=== PATIENT | female | born 1980 | race Caucasian/White ===

== ENCOUNTER 2020-05-18 00:06 | Inpatient (IN) ==
[2020-05-18] MEDS ORDERED: OXYTOCIN 30 UNITS/500 ML BAG IV PRN ×2 (01:17→12:29)
--- NOTE | 2020-05-18 01:27 | Obstetrical Progress Note ---
Date of Service May 18, 2020 Assessment & Plan Admission and Anticipated Discharge Date Admission Date: May 18, 2020 Physical Exam Physical Exam: Admit Note 39 F P0000 at 40 weeks admitted in early labor. GBS is negative. FHT Cat 1. Cervix 2-3/70/-2/vertex/intact. Will admit in labor. Results & Data ([facility]) Vital Signs (Past 12 Hours) Vital Signs Temp Pulse Resp BP 05/18/20 00:32 36.8 C 68 18 121/77 05/18/20 00:27 68 121/77 05/18/20 00:21 69 119/59 L
[2020-05-18 01:37] LABS: Hematocrit (blood only) 34.3 % (37-47); Mean Corpuscular Hemoglobin 26.1 pg (25-34); Mean Corpuscular Volume 81.3 fL (80-100); Mean Platelet Volume 11.4 fL (7.4-10.4); Platelet Count 235 K/uL (130-400); RDW Coefficient of Variation 15.3 % (11.5-14.5); RDW Standard Deviation 44.5 fL (36.4-46.3); Red Blood Count 4.22 M/uL (4.2-5.4); White Blood Count 15.45 K/uL (4.8-10.8)
[2020-05-18 01:44] LABS: Mean Corpuscular Hgb Conc 32.1 g/dL (32-36)
[2020-05-18] MEDS: LACTATED RINGER'S 1,000 ML IV PRN ×4 (04:35→23:14)
[2020-05-18] MEDS ORDERED: ePHEDrine sulfate 50 MG/ML AMP ONE (04:35)
[2020-05-18] MEDS ORDERED: BUPIVACAINE 0.25% 30 ML VIAL ONE ×2 (04:35→23:47)
[2020-05-18] MEDS ORDERED: fentaNYL citrate 100 MCG/2 ML VIAL ONE ×2 (04:35→23:47)
[2020-05-18] MEDS ORDERED: fentaNYL 2MCG/ML ROPIV 1.25MG/ML 100 ML BAG EPI ONE (04:36)
[2020-05-18] MEDS ORDERED: NALBUPHINE HCL INJ 10 MG/ML AMP IV PRN (04:39)
[2020-05-18] MEDS ORDERED: DiphenhydrAMINE HCL 50 MG/ML VIAL IV PRN (04:39)
[2020-05-18] MEDS ORDERED: ePHEDrine sulfate 50 MG/ML AMP IV PRN (04:39)
[2020-05-18] MEDS ORDERED: NALOXONE HCL 1 MG in SODIUM CHLORIDE 0.9% 1000ML 1,000 ML IV PRN (04:39)
[2020-05-18] MEDS ORDERED: NALOXONE HCL 0.4 MG/1 ML VIAL/CARP IV PRN (04:39)
--- NOTE | 2020-05-18 04:40 | Anesthesiology Consultation ---
Date of Service May 18, 2020 Assessment & Plan (1) Encounter for pre-operative examination: Chart Review Chart Review: Patient NOT seen in Pre Admission Testing and Acceptable Risk for Labor Epidural Consults Requested none History Height/Weight Height: 5 ft 4 in Weight: 66.224 kg Allergies Allergy/AdvReac Type Severity Reaction Status Date / Time lactose AdvReac Diarrhea Verified 05/18/20 01:31 Medications Home Medications Medication Instructions Recorded Confirmed Last Taken PNV cmb#95-ferrous fumarate-FA 1 tab PO DAILY 05/18/20 05/18/20 05/17/20 [] sertraline 25 mg PO DAILY 05/18/20 05/18/20 05/17/20 Past Medical History Medical History Depression LGSIL on Pap smear of cervix Exercise / Class Metabolic Activity II 4-5 Yardwork/Stairs/Walk up hill Past Surgical History Surgical History H/O LEEP [place] teeth extracted Past Anesthesia History No Hx of Anesthesia Complications and No Family Hx of Anesthesia Complications History of PONV No Hx of PONV and No Hx of Motion Sickness Social History Smoking Status: Never smoker Do You Dip or Chew Tobacco: No Hx Alcohol Use: No Hx Substance Use: No Physical Exam Vital Signs Last Vital Signs Temp 36.6 C 05/18/20 04:07 Pulse 66 05/18/20 04:07 Resp 18 05/18/20 04:07 BP 110/54 L 05/18/20 04:07 Testing Laboratory Results 05/18/20 01:30
--- NOTE | 2020-05-18 08:03 | Obstetrical Progress Note ---
Date of Service May 18, 2020 Assessment & Plan Admission and Anticipated Discharge Date Admission Date: May 18, 2020 Subjective Met pt and Spouse Epidural analgesia FHR; CAT1 Ctx; 2-4mins VE; 3-4/90/-1 AROM- mild meconium will augment labor with Pitocin pt agrees to piton augmentation Results & Data ([facility]) Vital Signs (Past 12 Hours) Vital Signs Temp Pulse Resp BP Pulse Ox 05/18/20 07:59 72 98 05/18/20 07:54 82 98 05/18/20 07:49 68 98 05/18/20 07:46 65 106/60 05/18/20 07:44 70 100 05/18/20 07:39 87 98 05/18/20 07:34 82 97 05/18/20 07:32 75 107/59 L 05/18/20 07:29 75 98 05/18/20 07:24 78 98 05/18/20 07:23 36.8 C 18 05/18/20 07:19 96 H 98 05/18/20 07:17 68 108/59 L 05/18/20 07:14 73 97 05/18/20 07:09 76 98 05/18/20 07:04 70 97 05/18/20 07:02 70 94/55 L 05/18/20 06:59 70 97 05/18/20 06:54 70 97 05/18/20 06:49 64 98 05/18/20 06:47 63 91/52 L 05/18/20 06:44 64 97 05/18/20 06:39 63 97 05/18/20 06:34 67 97 05/18/20 06:29 101 H 98 05/18/20 06:28 76 105/54 L 05/18/20 06:24 107 H 98 05/18/20 06:23 82 110/56 L 05/18/20 06:19 86 97 05/18/20 06:16 80 103/55 L 05/18/20 06:14 90 96 05/18/20 06:11 83 103/56 L 05/18/20 06:09 81 97 05/18/20 06:06 72 107/61 05/18/20 06:04 79 98 05/18/20 06:01 75 106/57 L 05/18/20 05:59 75 99 05/18/20 05:57 74 109/56 L 05/18/20 05:54 87 98 05/18/20 05:51 72 106/60 05/18/20 05:49 72 99 05/18/20 05:47 86 113/67 05/18/20 05:44 79 99 05/18/20 05:42 75 109/61 05/18/20 05:39 87 99 05/18/20 05:36 77 104/59 L 05/18/20 05:34 86 100 05/18/20 05:32 75 111/60 05/18/20 05:29 70 100 05/18/20 05:28 69 112/59 L 05/18/20 05:24 75 100 05/18/20 05:21 77 115/63 05/18/20 05:19 78 100 05/18/20 05:18 77 112/64 05/18/20 05:14 76 99 05/18/20 05:13 75 119/65 05/18/20 05:09 80 99 05/18/20 05:05 86 112/65 05/18/20 05:04 86 99 05/18/20 05:03 79 107/59 L 05/18/20 05:01 81 103/64 05/18/20 05:00 82 113/56 L 05/18/20 04:59 82 98 05/18/20 04:57 89 129/59 L 05/18/20 04:54 72 100 05/18/20 04:53 70 108/66 05/18/20 04:49 77 100 05/18/20 04:44 83 100 05/18/20 04:39 79 100 05/18/20 04:07 36.6 C 66 18 110/54 L 05/18/20 00:32 36.8 C 68 18 121/77 05/18/20 00:27 68 121/77 05/18/20 00:21 69 119/59 L
[2020-05-18] MEDS: ONDANSETRON INJ 2 MG/ML 2 ML VIAL IV PRN ×2 (12:50→20:09)
[2020-05-18] MEDS: fentaNYL 2MCG/ML ROPIV 1.25MG/ML 100 ML BAG EPI PRN ×2 (14:54→22:32)
[2020-05-18] MEDS ORDERED: Nursing to Pharmacy Communication SCH (19:30)
--- NOTE | 2020-05-18 20:05 | Obstetrical Progress Note ---
Date of Service May 18, 2020 Assessment & Plan Admission and Anticipated Discharge Date Admission Date: May 18, 2020 Subjective Pt doing wel FHR; CAT1 Ctx 1-3mins pit; 10Mu VE; 10/100/0 Pt has no urge to push Will start pushing when pt is experiencing vaginal pressure Results & Data ([facility]) Vital Signs (Past 12 Hours) Vital Signs Temp Pulse Resp BP Pulse Ox 05/18/20 19:59 92 H 99 05/18/20 19:54 68 100 05/18/20 19:49 64 100 05/18/20 19:47 67 102/56 L 05/18/20 19:44 64 100 05/18/20 19:39 67 100 05/18/20 19:37 72 118/54 L 05/18/20 19:34 87 99 05/18/20 19:29 64 99 05/18/20 19:24 61 99 05/18/20 19:19 61 100 05/18/20 19:17 61 115/56 L 05/18/20 19:14 65 100 05/18/20 19:09 69 100 05/18/20 19:08 36.8 C 18 05/18/20 19:05 36.8 C 18 05/18/20 19:04 82 100 05/18/20 19:03 60 119/66 05/18/20 19:00 20 05/18/20 18:59 58 L 100 05/18/20 18:54 57 L 100 05/18/20 18:49 57 L 99 05/18/20 18:48 64 112/68 05/18/20 18:44 58 L 99 05/18/20 18:39 60 100 05/18/20 18:34 59 L 100 05/18/20 18:33 55 L 123/66 05/18/20 18:30 20 05/18/20 18:29 55 L 100 05/18/20 18:24 62 100 05/18/20 18:19 62 100 05/18/20 18:17 56 L 113/66 05/18/20 18:14 66 100 05/18/20 18:09 56 L 100 05/18/20 18:04 80 100 05/18/20 18:02 55 L 115/72 05/18/20 18:00 18 05/18/20 17:59 67 100 05/18/20 17:54 61 99 05/18/20 17:49 60 97 05/18/20 17:48 59 L 112/67 05/18/20 17:44 62 98 05/18/20 17:39 61 97 05/18/20 17:34 63 97 05/18/20 17:32 60 111/66 05/18/20 17:30 20 05/18/20 17:29 61 98 05/18/20 17:24 58 L 98 05/18/20 17:19 60 97 05/18/20 17:17 56 L 116/60 05/18/20 17:14 57 L 100 05/18/20 17:09 62 97 05/18/20 17:04 79 99 05/18/20 17:02 61 103/66 05/18/20 17:00 36.8 C 20 05/18/20 16:59 78 98 05/18/20 16:54 73 98 05/18/20 16:49 60 98 05/18/20 16:46 58 L 116/68 05/18/20 16:44 61 97 05/18/20 16:39 67 99 05/18/20 16:34 59 L 97 05/18/20 16:31 63 116/67 05/18/20 16:30 20 05/18/20 16:29 58 L 97 05/18/20 16:24 62 97 05/18/20 16:19 57 L 98 05/18/20 16:17 58 L 114/61 05/18/20 16:14 68 99 05/18/20 16:09 76 98 05/18/20 16:04 67 97 05/18/20 16:02 64 107/55 L 05/18/20 16:00 20 05/18/20 15:59 65 98 05/18/20 15:54 80 98 05/18/20 15:49 66 98 05/18/20 15:46 61 103/59 L 05/18/20 15:44 61 96 05/18/20 15:39 62 96 05/18/20 15:34 60 97 05/18/20 15:31 80 100/58 L 05/18/20 15:30 20 05/18/20 15:29 60 97 05/18/20 15:24 59 L 97 05/18/20 15:19 59 L 97 05/18/20 15:17 55 L 109/58 L 05/18/20 15:14 62 98 05/18/20 15:09 67 98 05/18/20 15:04 57 L 98 05/18/20 15:01 36.9 C 55 L 20 109/62 05/18/20 14:59 58 L 97 05/18/20 14:54 67 98 05/18/20 14:49 57 L 97 05/18/20 14:47 56 L 106/60 05/18/20 14:44 61 98 05/18/20 14:39 56 L 97 05/18/20 14:34 58 L 99 05/18/20 14:32 57 L 106/59 L 05/18/20 14:29 56 L 98 05/18/20 14:24 58 L 98 05/18/20 14:19 56 L 98 05/18/20 14:17 55 L 109/58 L 05/18/20 14:14 58 L 99 05/18/20 14:09 71 99 05/18/20 14:04 66 99 05/18/20 14:03 58 L 120/67 05/18/20 13:59 60 99 05/18/20 13:54 67 98 05/18/20 13:49 72 98 05/18/20 13:48 60 104/63 05/18/20 13:44 64 98 05/18/20 13:39 71 98 05/18/20 13:34 66 98 05/18/20 13:33 70 114/54 L 05/18/20 13:29 62 97 05/18/20 13:24 64 97 05/18/20 13:19 70 97 05/18/20 13:17 55 L 113/67 05/18/20 13:14 68 97 05/18/20 13:09 61 98 05/18/20 13:04 56 L 98 05/18/20 13:02 64 113/64 05/18/20 13:00 36.9 C 18 05/18/20 12:59 72 98 05/18/20 12:54 80 97 05/18/20 12:49 97 H 98 05/18/20 12:44 79 99 05/18/20 12:39 68 98 05/18/20 12:34 62 98 05/18/20 12:31 72 105/67 05/18/20 12:29 64 98 05/18/20 12:24 65 98 05/18/20 12:19 62 98 05/18/20 12:16 75 111/66 05/18/20 12:14 64 98 05/18/20 12:09 67 98 05/18/20 12:04 67 97 05/18/20 12:02 59 L 107/68 05/18/20 12:00 18 05/18/20 11:59 66 97 05/18/20 11:54 62 98 05/18/20 11:49 65 98 05/18/20 11:48 59 L 115/68 05/18/20 11:44 65 98 05/18/20 11:39 62 97 05/18/20 11:34 62 98 05/18/20 11:33 61 114/68 05/18/20 11:29 64 98 05/18/20 11:24 69 98 05/18/20 11:19 75 99 05/18/20 11:16 90 117/73 05/18/20 11:14 87 99 05/18/20 11:09 94 H 99 05/18/20 11:04 61 99 05/18/20 11:01 78 116/75 05/18/20 11:00 36.8 C 18 05/18/20 10:59 77 97 05/18/20 10:54 66 98 05/18/20 10:49 72 99 05/18/20 10:46 64 111/68 05/18/20 10:44 70 98 05/18/20 10:39 68 98 05/18/20 10:34 74 98 05/18/20 10:31 73 113/67 05/18/20 10:29 67 98 05/18/20 10:24 67 97 05/18/20 10:19 75 97 05/18/20 10:16 75 114/67 05/18/20 10:14 91 H 99 05/18/20 10:09 100 H 98 05/18/20 10:04 84 97 05/18/20 10:01 66 112/65 05/18/20 10:00 18 05/18/20 09:59 64 98 05/18/20 09:54 74 97 05/18/20 09:49 72 97 05/18/20 09:47 68 110/64 05/18/20 09:44 77 96 05/18/20 09:39 65 97 05/18/20 09:34 79 97 05/18/20 09:32 59 L 101/61 05/18/20 09:29 74 97 05/18/20 09:24 80 97 05/18/20 09:19 72 97 05/18/20 09:16 69 104/61 05/18/20 09:14 64 98 05/18/20 09:09 69 98 05/18/20 09:04 66 98 05/18/20 09:02 64 111/63 05/18/20 09:00 36.9 C 18 05/18/20 08:59 87 98 05/18/20 08:54 72 99 05/18/20 08:49 69 98 05/18/20 08:46 67 107/67 05/18/20 08:44 79 98 05/18/20 08:39 74 98 05/18/20 08:34 66 98 05/18/20 08:31 66 109/67 05/18/20 08:29 81 98 05/18/20 08:24 87 98 05/18/20 08:19 80 98 05/18/20 08:17 74 104/65 05/18/20 08:14 75 98 05/18/20 08:09 62 98 05/18/20 08:04 81 97
--- NOTE | 2020-05-18 23:59 | Communication Note ---
Date of Service: May 18, 2020 At 2355 pt epidural catheter was bolused w/ 12 ml 0.17% bupivacaine + 100 mcgs fentanyl;neg. aspiration for csf or blood; incremental asp. and injec.;vital signs stable
[2020-05-19] MEDS ORDERED: BENZOCAINE 20% AER SPR 82.5 GM CAN EXT PRN (03:28)
[2020-05-19] MEDS ORDERED: SUPERCREAM 0.870% 15 GM JAR EXT PRN (03:28)
[2020-05-19] MEDS ORDERED: DIPHTHERIA/TETANUS/PERTUSSIS 0.5 ML SYR/VIAL IM ONE (03:28)
[2020-05-19] MEDS ORDERED: OXYTOCIN 30 UNITS/500 ML BAG IV PRN (03:28)
[2020-05-19] MEDS ORDERED: miSOPROStoL 200 MCG TAB PR ONE ×2 (03:28→05:30)
[2020-05-19] MEDS ORDERED: HYDROCORTISONE ACETATE 25 MG SUPP PR PRN (03:28)
[2020-05-19] MEDS ORDERED: bisacodyL 10 MG SUPP PR PRN (03:28)
[2020-05-19 03:48] LABS: Cord Venous Blood HCO3 19 mmol/L (18.4-26.8); Cord Venous Blood PCO2 41 mmHg (30.4-57.2); Cord Venous Blood PO2 26 mmHg (14.1-43.3); Cord Venous Blood pH 7.27 (7.20-7.44); O2 Saturation Cord Venous Bld < 60.0 % (<68)
[2020-05-19] MEDS ORDERED: Nursing to Pharmacy Communication SCH (05:30)
[2020-05-19] MEDS: IBUPROFEN 600 MG TAB PO PRN ×3 (07:05→17:57)
--- NOTE | 2020-05-19 07:12 | Anesthesia Procedure Note ---
Date of Service May 19, 2020 Anesthesia Post Epidural Note Vital Signs Vital Signs: Temp Pulse Resp BP Pulse Ox 37.3 C 79 18 116/50 L 98 05/19/20 05:45 05/19/20 05:45 05/19/20 05:45 05/19/20 05:45 05/19/20 05:45 Pain Intensity Abdomen: Pain Intensity: 0 Notes Mental Status: alert / awake / arousable and participated in evaluation Patient Amnestic to Procedure: Yes Nausea / Vomiting: adequately controlled Pain: adequately controlled Airway Patency, RR, SpO2: stable & adequate BP & HR: stable & adequate Hydration State: stable & adequate Anesthetic Complications: no major complications apparent and Pt Satisfied with anesthetic care
[2020-05-19] MEDS: DOCUSATE SODIUM 100 MG CAP PO SCH ×2 (08:36→22:06)
[2020-05-19] MEDS: PRENATAL VITAMIN 1 TAB PO SCH (08:38)
--- NOTE | 2020-05-19 10:56 | Delivery Summary ---
DATE OF OPERATION: 05/19/2020 The patient delivered a live infant female in left occiput anterior presentation. There was no nuchal cord. Infant was delivered. Cord was clamped and cut. There was a known meconium prior to delivery. Cord blood and cord gas were obtained after infant was handed to the waiting pediatric team. Placenta was spontaneously delivered. Inspection of placenta shows a meconium stained placenta with 3-vessel cord. Placenta was sent to pathology for pathological analysis. Inspection of the perineum showed a second-degree midline laceration. This laceration is repaired with 2-0 Vicryl in layers. Rectal exam post repair showed good sphincter tone, no sutures are palpated in the rectum. Estimated blood loss is 150 mL. All instruments were removed from the vagina and accounted for x2 including sponges and retractors. Baby and mother are doing well in recovery. I attest to the content of the Intraoperative Record and any orders documented therein. Any exception s are noted below.
[2020-05-19] MEDS: SERTRALINE HCL 50 MG TABLET PO SCH (12:19)
--- NOTE | 2020-05-19 19:55 | Obstetrical Progress Note ---
Date of Service May 19, 2020 Assessment & Plan Admission and Anticipated Discharge Date Admission Date: May 18, 2020 Subjective Patient is seen and examined. She feels well, no complaints. She has been leaking urine since this morning Ambulating without dizziness Voiding without difficulty Tolerating regular diet with out N&V Bleeding is minimal No fever/ chills/ CP/ SOB/ N&V/ Leg pain Breast feeding without problems Vital Signs Temp Pulse Resp BP Pulse Ox 05/19/20 15:15 36.5 C 71 18 118/75 96 05/19/20 11:00 36.7 C 81 18 106/64 97 Lab Results 05/18/20 05/19/20 05/19/20 Range/Units 01:30 02:51 02:51 WBC 15.45 H (4.8-10.8) K/uL RBC 4.22 (4.2-5.4) M/uL Hgb 11.0 L (12.0-16.0) g/dL Hct 34.3 L (37-47) % MCV 81.3 (80-100) fL MCH 26.1 (25-34) pg MCHC 32.1 (32-36) g/dL RDW Std Deviation 44.5 (36.4-46.3) fL RDW Coeff of Asif 15.3 H (11.5-14.5) % Plt Count 235 (130-400) K/uL MPV 11.4 H (7.4-10.4) fL Cord ABG pH Cancelled Cord ABG pCO2 Cancelled Cord ABG pO2 Cancelled Cord ABG HCO3 Cancelled Cord ABG Base Excess Cancelled Cord ABG O2 Sat Cancelled Cord VBG pH 7.27 (7.20-7.44) Cord VBG pCO2 41 (30.4-57.2) mmHg Cord VBG pO2 26 (14.1-43.3) mmHg Cord VBG HCO3 19 (18.4-26.8) mmol/L Cord VBG Base Excess -8.0 L (-7.7-1.9) mEq/L Cord VBG O2 Sat < 60.0 (<68) % Barometric Pressure 730.5 Cancelled mm/Hg Blood Gas Comments HASTINGS Cancelled PE: General: Alert, orientedx3, NAD Abd: soft, NT, fundus firm, below Umbilicus Perineum intact, small bruise on posterior fourchette, leaking from urethra with cough Gentle digital exam: no hematoma Lochia rubra minimal Ext; NT, no edema AP: 39 yo s/p , ppd# 0 VSS Afebrile doing well Leaking urine: discussed kegel exercise after recovery, avoid bladder irritants Continue routine care All questions were answered Results & Data ([facility]) Vital Signs (Past 12 Hours) Vital Signs Temp Pulse Resp BP Pulse Ox 05/19/20 15:15 36.5 C 71 18 118/75 96 05/19/20 11:00 36.7 C 81 18 106/64 97
[2020-05-20] MEDS: IBUPROFEN 600 MG TAB PO PRN ×4 (00:02→20:12)
[2020-05-20 06:00] LABS: Hematocrit (blood only) 31.8 % (37-47); Hemoglobin 10.1 g/dL (12.0-16.0); Mean Corpuscular Hgb Conc 31.8 g/dL (32-36); Mean Platelet Volume 12.1 fL (7.4-10.4); Nucleated RBC # (auto) 0.04 K/uL (0-0); Nucleated RBC % (auto) 0.2 %; Platelet Count 210 K/uL (130-400); RDW Coefficient of Variation 15.6 % (11.5-14.5); RDW Standard Deviation 45.3 fL (36.4-46.3); Red Blood Count 3.88 M/uL (4.2-5.4); White Blood Count 20.29 K/uL (4.8-10.8)
--- NOTE | 2020-05-20 08:15 | Obstetrical Progress Note ---
Date of Service May 20, 2020 Assessment & Plan (1) Normal course: PPD #1 Pt doing well incontinence post delivery from prolonged 2nd stage of labor Anticipate disch tomorrow Subjective Ambulation: ambulating normally Voiding: no voiding problems Passing Gas:: Yes Diet Tolerance:: regular diet Lochia:: Small Feeding Type:: breast feeding Review of Systems All systems reviewed & are unremarkable except as noted in HPI & below Physical Exam Constitutional WD/WN, vitals as above well developed and well nourished Eyes PERRL, conjunctivae normal, anicteric sclerae Neck trachea midline, no thyromegaly Respiratory normal respiratory effort, lungs clear to auscultation Auscultation: no crackles, no rales and no wheezes Cardiovascular RRR, no murmur, no edema Gastrointestinal (Abdomen) normal bowel sounds, soft, nontender, no hepatosplenomegaly Uterus is below umbilicus Musculoskeletal no cyanosis or clubbing, extremities motor strength 5/5 Skin no rashes, warm and dry Neurologic patellar DTR's 2+ bilat, sensation intact Psychiatric A+Ox3, euthymic affect Genitourinary normal external appearance Results & Data Vital Signs (Past 12 Hours) Vital Signs Temp Pulse Resp BP Pulse Ox 05/20/20 00:00 36.5 C 63 16 110/67 97
[2020-05-20] MEDS: PRENATAL VITAMIN 1 TAB PO SCH (08:16)
[2020-05-20] MEDS: DOCUSATE SODIUM 100 MG CAP PO SCH ×2 (08:16→20:13)
[2020-05-20] MEDS: SERTRALINE HCL 50 MG TABLET PO SCH (08:17)
[2020-05-20] MEDS: ACETAMINOPHEN 325 MG TAB PO PRN ×2 (17:45→23:34)
[2020-05-20] MEDS ORDERED: bisacodyL 5 MG TABEC PO SCH (20:00)
[2020-05-21] MEDS: IBUPROFEN 600 MG TAB PO PRN ×2 (01:43→08:07)
[2020-05-21 07:00] LABS: Hematocrit (blood only) 27.7 % (37-47); Hemoglobin 8.7 g/dL (12.0-16.0)
[2020-05-21] MEDS: PRENATAL VITAMIN 1 TAB PO SCH (08:07)
[2020-05-21] MEDS: DOCUSATE SODIUM 100 MG CAP PO SCH (08:07)
[2020-05-21] MEDS: SERTRALINE HCL 50 MG TABLET PO SCH (08:08)
--- NOTE | 2020-05-21 09:10 | Obstetrical Progress Note ---
Date of Service May 21, 2020 Assessment & Plan Admission and Anticipated Discharge Date Admission Date: May 18, 2020 Physical Exam Physical Exam: PPD#2 doing well out of bed passing gas minimal discomfort Constitutional: WD/WN, vitals as above comfortable abdomen soft and non- tender fundus firm no edema neg Mario Alberto'sfor discharge Results & Data ([facility]) Vital Signs (Past 12 Hours) Vital Signs Temp Pulse Resp BP Pulse Ox 05/21/20 08:10 36.3 C L 61 16 122/81 98 05/20/20 23:20 36.7 C 83 18 115/76 98 Laboratory Results 05/18/20 05/19/20 05/19/20 01:30 02:51 02:51 WBC 15.45 H RBC 4.22 Hgb 11.0 L Hct 34.3 L MCV 81.3 MCH 26.1 MCHC 32.1 RDW Std Deviation 44.5 RDW Coeff of Asif 15.3 H Plt Count 235 MPV 11.4 H Absolute Nucleated RBC Nucleated RBC % (auto) Cord ABG pH Cancelled Cord ABG pCO2 Cancelled Cord ABG pO2 Cancelled Cord ABG HCO3 Cancelled Cord ABG Base Excess Cancelled Cord ABG O2 Sat Cancelled Cord VBG pH 7.27 Cord VBG pCO2 41 Cord VBG pO2 26 Cord VBG HCO3 19 Cord VBG Base Excess -8.0 L Cord VBG O2 Sat < 60.0 Barometric Pressure 730.5 Cancelled Blood Gas Comments HASTINGS Cancelled Blood Type Antibody Screen Screen 05/20/20 05/20/20 05/21/20 05:31 05:31 06:33 WBC 20.29 H RBC 3.88 L Hgb 10.1 L 8.7 L Hct 31.8 L 27.7 L MCV 82.0 MCH 26.0 MCHC 31.8 L RDW Std Deviation 45.3 RDW Coeff of Asif 15.6 H Plt Count 210 MPV 12.1 H Absolute Nucleated RBC 0.04 H Nucleated RBC % (auto) 0.2 Cord ABG pH Cord ABG pCO2 Cord ABG pO2 Cord ABG HCO3 Cord ABG Base Excess Cord ABG O2 Sat Cord VBG pH Cord VBG pCO2 Cord VBG pO2 Cord VBG HCO3 Cord VBG Base Excess Cord VBG O2 Sat Barometric Pressure Blood Gas Comments Blood Type B Negative Antibody Screen NEGATIVE Screen Negative
== END 2020-05-21 11:22 | disposition home or self-care (01) | DRG 807 ==
LOC: OPB 00:06 → 4S1 00:10 → 4S2 05-19 05:45